=== PATIENT | female | born 1995 | race Caucasian/White ===

== ENCOUNTER 2024-05-19 13:29 | Emergency (ER) | payer OTHER, SELFPAY ==
[2024-05-19] MEDS ORDERED: Acetaminophen 500 MG TAB ONE (14:31)
== END 2024-05-19 14:39 | disposition home or self-care (01) ==
LOC: BURERS 13:29
DX: M25.471 Effusion, right ankle (principal)
CPT/HCPCS: 36415; 85379; 93005; 99283